=== PATIENT | female | born 1975 | race Caucasian/White ===

== ENCOUNTER 2018-07-28 18:47 | Emergency (ER) | payer SELFPAY ==
[~2018-07-28] VITALS: Ht 160 cm; Wt 72.7 kg
[2018-07-28] MEDS ORDERED: MAGNESIUM SULFATE 2 GM/WATER 50 ML IV ONE (21:30)
[2018-07-28] MEDS ORDERED: ONDANSETRON HCL 4 MG/2 ML VIAL IVP ONE (21:30)
[2018-07-28] MEDS ORDERED: MethylPREDNISolone SOD SUCC 125 MG/2 ML VIAL IVP ONE (21:30)
[2018-07-28] MEDS ORDERED: SODIUM CHLORIDE 0.9% 1,000 ML IV ONE (21:30)
[2018-07-28] MEDS ORDERED: KETOROLAC TROMETHAMINE 30 MG/ML VIAL IVP ONE (21:30)
[2018-07-28 22:52] VITALS: BP 125/77
== END 2018-07-28 23:26 | disposition home or self-care (01) ==
LOC: EMS 18:50
DX: G44.209 Tension-type headache, unspecified, not intractable (principal); H11.31 Conjunctival hemorrhage, right eye
CPT/HCPCS: 70450; 96374; 96375; 99284; J1885; J2405; J2930; J3475; J7030